=== PATIENT | female | born 1935 | race Two or more races ===

== ENCOUNTER 2020-02-16 06:30 | Day surgery (SDC) | payer MEDICARE, MEDICAID ==
[2020-02-16] VITALS (8 sets, daily range): BP systolic 151–172; BP diastolic 81–92
[~2020-02-16] VITALS: Ht 165.1 cm; Wt 67.6 kg
[2020-02-16] MEDS ORDERED: LR 1000ml ONE (06:31)
[2020-02-16] MEDS ORDERED: AMLODIPINE BESYL5 MG ORAL (07:34)
[2020-02-16] MEDS ORDERED: LOSARTAN POTASS50 MG ORAL (07:34)
[2020-02-16] MEDS ORDERED: fentaNYL 100 mcg/2 mL IV ONE (08:57)
--- NOTE | 2020-02-16 09:12 | Anethesia Preoperative Eval ---
Anesthesia Pre-op PMH/ROS General Date of Evaluation: Feb 16, 2020 Time of Evaluation: 09:10 Anesthesiologist: Chloé ASA Score: ASA 3 Mallampati Score Class I : Soft palate, uvula, fauces, pillars visible Class II: Soft palate, uvula, fauces visible Class III: Soft palate, base of uvula visible Class IV: Only hard plate visible Mallampati Classification: Class II Surgeon: Priscila Diagnosis: Abdominal pain Surgical Procedure: EGD Colonoscopy Anesthesia History: none Family History: no anesthesia problems Allergies: Coded Allergies: No Known Allergies (Unverified , 02/16/20) Medications: see eMAR Patient NPO?: Yes Past Medical History Cardiovascular: Reports: HTN; Denies: CAD, [place], valve dz, arrhythmia, other Pulmonary: Denies: asthma, COPD, [place], other Gastrointestinal/Genitourinary: Reports: GERD, other - chronic diarrhea; Denies: CRI, ESRD Neurologic/Psychiatric: Denies: dementia, CVA, depression/anxiety, TIA, other Endocrine: Reports: hypothyroidism; Denies: DM, steroids, other HEENT: Reports: cataract (L), cataract (R); Denies: glaucoma, [place] (L), [place] (R), other Hematology/Immune: Reports: anemia - mild; Denies: DVT, bleeding disorder, other Musculoskeletal/Integumentary: Reports: OA; Denies: RA, DJD, DDD, edema, other PMH Narrative: as above PSxH Narrative: See H&P Anesthesia Pre-op Phys. Exam Physician Exam Last Vital Signs Date Time Temp Pulse Resp B/P (MAP) Pulse Ox O2 Delivery O2 Flow Rate FiO2 02/16/20 07:29 Room Air 02/16/20 07:15 98.4 89 18 172/92 96 Airway Exam Mallampati Score: Class II Anesthesia Pre-op A/P Labs see chart Studies Pre-op Studies: EKG - SR Risk Assessment & Plan Assessment: ASA 3 Plan: MAC Status Change Before Surgery: Tera Solis MD Feb 16, 2020 09:12
--- NOTE | 2020-02-16 09:15 | Short Stay Surgery H&P ---
History of Present Illness History of Present Illness Chief Complaint see typed H&P HPI Baylee R Melisa is a 84 year old female who was admitted on for Diarrhea Patient History Allergies: Coded Allergies: No Known Allergies (Unverified , 02/16/20) Medication History Scheduled Amlodipine Besylate* (Amlodipine Besylate*), 5 MG ORAL DAILY, (Reported) Losartan Potassium* (Losartan Potassium*), 50 MG ORAL DAILY, (Reported) Physical Exam Vital Signs Last Vital Signs Date Time Temp Pulse Resp B/P (MAP) Pulse Ox O2 Delivery O2 Flow Rate FiO2 02/16/20 07:29 Room Air 02/16/20 07:15 98.4 89 18 172/92 96 Plan Attestation Are the patient's medical conditions optimized for surgery? Genny Lipscomb MD Feb 16, 2020 09:15
--- NOTE | 2020-02-16 09:16 | Pre-Procedure Note/Attestation ---
Pre-Procedure Note/Attestation Complete Prior to Procedure Planned Procedure: not applicable Procedure Narrative: esophagogastroduodenoscopy colon Indications for Procedure Pre-Operative Diagnosis: diarrhea Attestation I attest that I discussed the nature of the procedure; its benefits; risks and complications; and alternatives (and the risks and benefits of such alternatives ), prior to the procedure, with the patient (or the patient's legal account retention representative). I attest that, if there was a reasonable possibility of needing a blood transfusion, the patient (or the patient's legal account retention representative) was given the [facility] standardized written summary, pursuant to the Demetrius Alin Blood Safety Act ([place] Health and Safety Code # 1645, as amended). I attest that I re-evaluated the patient just prior to the surgery and that there has been no change in the patient's H&P, except as documented below: Genny Lipscomb MD Feb 16, 2020 09:16
--- NOTE | 2020-02-16 10:02 | Immediate Post-Op Evaluation ---
Immediate Post-Op Evalulation Immediate Post-Op Evalulation Procedure: EGD Colonoscopy Date of Evaluation: Feb 16, 2020 Time of Evaluation: 10:01 IV Fluids: 600 Blood Products: none Estimated Blood Loss: none Urinary Output: none Blood Pressure Systolic: 159 Blood Pressure Diastolic: 84 Pulse Rate: 68 Respiratory Rate: 18 O2 Sat by Pulse Oximetry: 99 Temperature (Fahrenheit): 97.7 Pain Score (1-10): 1 Nausea: No Vomiting: No Complications none Patient Status: awake, patent, none Hydration Status: adequate Tera Luevano MD Feb 16, 2020 10:02
--- NOTE | 2020-02-16 10:08 | Endoscopy Procedure Note ---
Endoscopy Procedure Note General Indication for Procedure: diarrhea, calpro (+) Procedures Performed: EGD, colonoscopy Operative Findings/Diagnosis: mild judy , mild tics Specimen: yes Pt Tolerated Procedure Well: Yes Estimated Blood Loss: none Anesthesia Anesthesiologist: Rafy Anesthesia: MAC Medications Medication Given: see anesthesia record Inserted Devices Implant(s) used?: No GI Core Measures 50 yrs or older w/o bx or poly: Not Applicable 10yrs. F/U recommended: Not Applicable If not recommended, why?: Genny Lipscomb MD Feb 16, 2020 10:08
--- NOTE | 2020-02-16 10:09 | Brief Operative Note ---
Immediate Post Operative Note Operative Note Chief Complaint: diarrhea, calpro (+) Pre-op Diagnosis: diarrhea Procedure: esophagogastroduodenoscopy colon bx bx Post-op Diagnosis: mild judy lild abram Surgeon: ezra Anesthesiologist: see report Anesthesia: MAC Specimen: yes Complications: none Condition: stable Fluids: recorded Estimated Blood Loss: none Drains: none Implant(s) used?: No Genny Lipscomb MD Feb 16, 2020 10:09
--- NOTE | 2020-02-16 10:43 | 48 Hour Post Anesthesia Eval ---
Post Anesthesia Evaluation Procedure: EGD Colonoscopy Date of Evaluation: Feb 16, 2020 Time of Evaluation: 10:41 Blood Pressure Systolic: 162 0: 78 Pulse Rate: 64 Respiratory Rate: 18 Temperature (Fahrenheit): 97.6 O2 Sat by Pulse Oximetry: 98 Airway: patent Nausea: No Vomiting: No Pain Intensity: 1 Hydration Status: adequate Cardiopulmonary Status: stable Mental Status/LOC: patient returned to baseline Follow-up Care/Observations: n/a Post-Anesthesia Complications: none Follow-up care needed: ready to discharge Tera Luevano MD Feb 16, 2020 10:43
--- NOTE | 2020-02-16 13:15 | Operative Note - Dictated ---
DATE OF OPERATION: 02/16/2020 GASTROENTEROLOGY PROCEDURE REPORT PROCEDURE: Upper gastrointestinal endoscopy with biopsy as well as colonoscopy with biopsy. SURGEON: Genny Lipscomb MD. ANESTHESIA: Please see the separate anesthesiologist notes for details. 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 PROCEDURES: The procedures, their risks, indications, alternatives, and possible complications, including but not limited to, bleeding, infection, perforation, , and anesthesia complications were explained to the patient and/or responsible alliance party and an informed consent was obtained. Time out was announced immediately prior to the procedure. The patient was sedated in the left lateral decubitus position and the upper endoscope was introduced into the oropharynx and advanced to the 3rd portion of the duodenum without difficulty. The endoscope was then gradually withdrawn and the mucosa were examined carefully. Views included retroflex view of the stomach. Examination of the upper gastrointestinal mucosa revealed the findings listed. Endoscopic treatments or biopsies, if any, are also listed under "findings and treatments" section. The patient was then turned around while in the left lateral decubitus position and a rectal exam was performed. The colonoscope was then introduced into the rectum and advanced to the cecum without difficulty. The cecum was identified by the appearance of ileocecal valve and the appendiceal orifice. Cecal position was further verified by palpation and translumination. The colonoscope was then gradually withdrawn and the mucosa were examined carefully. Examination was concluded with a retroflex view of the rectum. Examination of the colonic mucosa revealed the findings listed. Terminal ileum intubation and findings, if performed, are listed. The patient was left to recover in stable condition. POST-ENDOSCOPIC DIAGNOSES: 1. Minimal antral gastritis, status post biopsy. 2. Status post random biopsy of the duodenum. 3. Normal terminal ileum for about 15 to 20 cm, status post biopsy. 4. Status post random biopsies of the normal right colon, left colon, and rectosigmoid colon. 5. Mild sigmoid diverticulosis. RECOMMENDATIONS: 1. Follow up biopsy results. 2. Outpatient followup. Genny Lipscomb M.D. DR: KAYLEEN JOB#: [id number] CC: CARSON
== END 2020-02-16 11:00 | disposition home or self-care (01) ==
LOC: GAS 06:30
DX: R19.7 Diarrhea, unspecified (principal); K29.50 Unspecified chronic gastritis without bleeding; K57.90 Diverticulosis of intestine, part unspecified, without perforation or abscess without bleeding; I10 Essential (primary) hypertension; K21.9 Gastro-esophageal reflux disease without esophagitis; M19.90 Unspecified osteoarthritis, unspecified site
CPT/HCPCS: 43239; 45380; 94003; J2704; J3010; J7120; 94150